=== PATIENT | male | born 1990 | race Caucasian/White ===

== ENCOUNTER 2020-07-13 10:44 | Inpatient (IN) | payer MEDICARE, OTHER ==
[~2020-07-13] VITALS: Ht 152.4 cm; Wt 104.5 kg
--- NOTE | 2020-07-13 21:00 | NUR ---
PT ARRIVED TO CCU ROOM 127 ADMITTED WITH CELLULITIS OF THE LLE, LEFT FOOT IS REDDENED/BLANCHEABLE, HOT TO THE TOUCH, AREA MARKED WITH MARKER. PT IS DEVELOPMENTALLY DELAYED/DOWN SYNDROM. MOTHER IS WITH PT AND WILL BE SPENDING THE NIGHT, STATES PTS NORMAL BASELINE MENTATION IS AT F[age] YEAR OLD LEVEL.PT VERY RESISTANT TO MOST CARE ACTIVITIES. WAS VERY RESISTANT TO MOVING FROM STETCHER TO BED, YELLING AND HITTING AT STAFF WITH ATTEMPTS TO MOVE HIM. AFTER MOVED HE WAS IMMEDIATLEY CALM HOWEVER. PLAN OF CARE DISCUSSED WITH MOTHER, QUESTIONS ANSWERED.
--- NOTE | 2020-07-13 21:33 | EKG ---
[facility] [address] [facility] [place] [address] Signed Sinus tachycardia Rightward axis Incomplete right bundle branch block Cannot rule out Inferior infarct , age undetermined Abnormal ECG No previous ECGs available Confirmed by KIRAN ZENG MD ([id number]) on 07/13/2020 9:32:57 PM Electronically Signed By: KIRAN ZENG MD 07/13/202132 PATIENT NAME: PARI BIANCHI Electrocardiogram DATE OF : [birth year] PHYSICIAN: KIRAN ZENG MD REPORT #: [id number] REPORT IS CONFIDENTIAL AND NOT TO BE RELEASED WITHOUT AUTHORIZATION
--- NOTE | 2020-07-14 01:29 | NUR ---
PT CONT SITTING UP IN BED WATCHING TV AND PLAYING ON HIS IPAD.
--- NOTE | 2020-07-14 02:00 | NUR ---
SPO2 DROPPED DOWN TO 83%, PT WAS SLEEPING BUT AWAKE WHEN STAFF CAME IN ROOM. BLOWBY O2 PLACED AND SPO2 UP TO 93%. WILL CON TO MONITOR.
--- NOTE | 2020-07-14 02:30 | NUR ---
PT STILL HAD NOT VOIDED, MADE SEVERAL ATTEMPTS TO GET HIM UP TO VOID BUT HE WAS VERY RESISTANT, REFUSING TO MOVE OUT OF BED, YELLING. TRIED USING A URINAL IN BED BUT HE WOULD NOT GO AND KEPT REPEATING "NO PEE, HOLD IT". BLADDER SCAN SHOWED 1200ML, CATHETER PLACED WITH IMMEDIATE RETURN OF 1500ML ODIN URINE. PT CALMER AFTER AND LYING BACK AFTER REPOSITIONING TO TRY TO REST.
--- NOTE | 2020-07-14 03:10 | NUR ---
PT APPEARS TO BE SLEEPING, SPO2 93% BLOW BY O2 IN PLACE.
--- NOTE | 2020-07-14 05:35 | NUR ---
LAB IN TO DRAW, PT TOLERATED WELL WITH REASSURANCE. SPENDS ABOUT AN HOUR TOSSING AND TURNING AND THEN FINALLY GOES TO SLEEP.
--- NOTE | 2020-07-14 07:30 | NUR ---
PATIENT SLEEPING AT THSI TIME WITH HIS MOM AT THE BEDSIDE. WILL ALLOW PATIENT TO REST. NO OTHER NEEDS AT THIS TIME. BREAKFAST ORDERED.
--- NOTE | 2020-07-14 07:30 | NUR ---
PATIENT SHIFT REPORT RECIEVED FROM APPLICATION DEVELOPER MANAGER RN. PATIENT RESTING IN BED. PATIENT GETTING AN ECHO COMPLETED AT THIS TIME. WILL CONTINUE TO CLOSELY MONITOR.
--- NOTE | 2020-07-14 08:16 | NUR ---
PATIENT UP IN THE BED EATING BREAKFAST. PATIENT ASSESSMENT COMPELTED. PATIENT BOWEL TONES ACTIVE. PATIENT DENIES ABD PAIN. BREATH SOUNDS CLEAR. PATIENT ON RA WITH SPO2 96%. WILL CONTINUE TO CLOSELY MONITOR.
--- NOTE | 2020-07-14 08:22 | NUR ---
THIS RN IN TO SEE PATIENT. PATIENT RESTING AT THIS TIME. PER REPORT PATIENT DID NOT SLEEP MUCH LAST NIGHT. PATIENTS MOM REQUESTS STAFF TO ALLOW PATIENT TO SLEEP A LITTLE WHILE LONGER. VITALS STABLE. WILL CONTINUE TO CLOSELY MONITOR.
--- NOTE | 2020-07-14 10:00 | NUR ---
PATIENT ASSESSMENT COMPELTED. ALLOWED PATIENT TO SLEEP IN THIS AM D/T PATIENT NOT SLEEPING MUCH LAST NIGHT. MD ZENG IN TO SEE PATIENT. PATIENTS FOOT IS PINK. OUTLINED WITH MARKER. LEFT FOOT IS WARM TO THE TOUCH. PATIENTS BREATH SOUNDS CLEAR. BOWEL TONES ACTIVE. PATIENT DENIES WANTING TO EAT BREAKFAST. PATIENTS MOM AT THE BEDSIDE. ALL QUESTIONS ANSWERED. WILL CONTINUE TO CLOSELY MONITOR.
[2020-07-14] MEDS ORDERED: OLOPATADINE HC2.5 ML OU (10:45)
[2020-07-14] MEDS ORDERED: ERYTHROMYCIN1 GM OU (11:04)
[2020-07-14] MEDS ORDERED: ALLEGRA ALLERG180 MG PO (11:04)
--- NOTE | 2020-07-14 11:05 | NUR ---
MED REC COMPLETE
--- NOTE | 2020-07-14 12:00 | NUR ---
PATIENT RESTING IN BED. PATIENTS MOM LEFT FOR AWHILE AND NOW IS BACK AT THIS TIME. LUNCH ORDERED. VITALS DONE. PATIENTS ASSESSMENT COMPLETED AND REMAINS UNCHANGED FROM PRIOR ASSESSMENT. PATIENT FOLLOWING COMMANDS. PER PATIENTS MOM PATIENT HAS THE MENTATION OF A 3YEAR OLD. BED ALARM WAS ON WHILE PATIENTS MOM WAS GONE. WILL CONTINUE TO CLOSELY MONITOR.
--- NOTE | 2020-07-14 12:22 | NUR ---
PT'S MOTHER HAS STEPPED OUT OF THE RM. PT GETS EASILY AGGITATED AND REQUESTED I WAIT UNTIL PT'S MOTHER RETURNS. WILL FOLLOW NEEDED
--- NOTE | 2020-07-14 14:08 | NUR ---
Got pt. up into chair, gave bed bath cleaned pt. up. had bowel movement in bed. Bed linens changed, changed pt. clothes. no other needs at this time.
--- NOTE | 2020-07-14 14:15 | NUR ---
THIS RN AND CATHODE RAY TUBE ASSEMBLER ASSISTED PATIENT UP TO THE CHAIR TO CLEAN PATIENT UP AND CHANGE LINEN. PATIENT INITIALLY DID NOT WANT TO GET UP AND BECAME UPSET. STAFF WERE ABLE TO ASSIST PATIENT UP TO THE CHAIR WITH SOME ENCOURAGEMENT. PATIENT HAD AN INCONTINENT BM IN THE BED. ALL LINEN CHANGED. BED BATH COMPLETED. NEW SHIRT PROVIDED. CAZARES CATH CARE DONE. PATIENT TOLERATED WELL AND ASSISTED UP BACK TO BED. GAVE PATIENT STICKERS AND WARM BLANKETS. PATIENT DRANK 2 APPLE ENSURES FOR LUNCH. PATIENT REFUSED ALL OTHER FOOD. NO OTHER NEEDS AT THIS TIME. WILL CONTINUE TO CLOSELY MONITOR.
--- NOTE | 2020-07-14 15:45 | NUR ---
PATIENT ASLEEP IN BED AT THIS TIME. WILL ALLOW PATIENT TO REST. WILL CONTINUE TO CLOSELY MONITOR.
--- NOTE | 2020-07-14 16:34 | NUR ---
STAFF IN TO APPLY NYSTATIN POWDER. PATIENT HANDLED IT WELL. DINNER ORDERED. VITALS COMPLETED. UPDATED PATIENTS MOM AND PATIENT THAT WE MAY MOVE HIM TO THE MEDICAL UNIT THIS EVENING. ALL QUESTIONS ANSWERED. NO OTHER NEEDS AT THIS TIME. PATIENT IS PLAYING ON HIS ANTONIETA DEVICE. WILL CONTINUE TO CLOSELY MONITOR.
--- NOTE | 2020-07-14 16:38 | NUR ---
Spoke with kathy Daly. Plans on pt going home when cleared medically. She is concerned as there are 5 steps into the home. Pt will not put any weight on his foot. Asked her to discuss with Dr. Nance in the morning, updated nurses. Suggested if pt is discharge tomorrow, they call the van for transport and then call EMS for a nonemergent lift to get him in the house. Mom states pt has a cane, she denies need for a walker at this time.
--- NOTE | 2020-07-14 17:40 | NUR ---
Recieved report from Madison TROTTER. All questions answered. Anticipating pts arrival in bed within the next 15mins.
--- NOTE | 2020-07-14 17:45 | NUR ---
REPORT GIVEN TO MEGHAN TROTTER. PATIENT AND ALL BELONGINGS TRANSFERED TO ROOM 121. PATIENTS MOM AT THE BEDSIDE. PATIENT ORIENTED TO ROOM AND STAFF. SHOWED QUAN TROTTER PATIENTS FOOT AND ANSWERED ALL QUESTIONS. NO OTHER NEEDS AT THIS TIME.
--- NOTE | 2020-07-14 18:00 | NUR ---
Pt delivered to new room on [facility] by Madison TROTTER and MEE and Alejo TROTTER. Pt settled into new room. Pt was slightly tachypnic and slightly tachy upon the excitement of the arrival, then was calmer once the extra people left the room and he felt more settled. Pts assessment complete, VSS, pt oriented to self, mother, and somewhat to place. Pt hungry, pt having dinner in bed, able to feed himself with minimal help opening things. Pt has mentation of about 3 years old. Pt in bed, IV fluids started and hung as ordered by Dinorah TROTTER. Pt in bed, side rails up x4, table and call light within reach, mother at the bedside.
--- NOTE | 2020-07-14 19:00 | NUR ---
SHIFT REPORT RECEIVED FROM MEGHAN TROTTER AND YVONNE TROTTER. PT RESTING IN BED, WATCHING TV. IV FLUIDS INFUSING PER ORDER. NO NEEDS AT THIS TIME. MOM IN ROOM. CALL LIGHT IN REACH.
--- NOTE | 2020-07-14 19:58 | NUR ---
pts VS and I&Os complete. Nothing further needed at this time.
--- NOTE | 2020-07-14 21:53 | NUR ---
ASSESSMENT COMPLETED. SCHEDULED MEDS PROVIDED. PRN PAIN MED PROVIDED FOR 3/10 PAIN USING FACES. IV WNL, CDI, FLUSHED WELL. PT ORIENTED TO PERSON, MOTHER IN ROOM. LUNGS CLEAR, HEART TONES REGULAR. ABD SOFT AND NONTENDER, BOWEL TONES ACTIVE. REDNESS UNDER PANNUS AND GROIN, NYSTOP APPLIED. CAZARES WNL. 1+ EDEMA IN RIGHT FOOT, REDNESS, CMS INTACT. JUICE PROVIDED. NO OTHER NEEDS. CALL LIGHT IN REACH.
--- NOTE | 2020-07-14 23:41 | NUR ---
PT RESTING IN BED, EYES CLOSED. RR EVEN, UNLABORED. MOM IN ROOM. CALL LIGHT IN REACH.
--- NOTE | 2020-07-15 01:31 | NUR ---
PT RESTING IN BED, EYES CLOSED. RR EVEN, UNLABORED. IV FLUIDS INFUSING PER ORDER. MOM IN ROOM. CALL LIGHT IN REACH.
--- NOTE | 2020-07-15 03:35 | NUR ---
PT RESTING IN BED, EYES CLOSED. RR EVEN, UNLABORED. IV FLUIDS INFUSING PER ORDER. MOM IN ROOM. CALL LIGHT IN REACH.
--- NOTE | 2020-07-15 06:06 | NUR ---
IN TO GET VITALS, I&OS DONE, WHITEBOARD UPDATED, CHRISTEN RIVERAPED, RN NOW IN RM TO HANG IV MEDS, NO FURTHER NEEDS AT THIS TIME, LAB TO BE IN SHORTLY
--- NOTE | 2020-07-15 06:16 | NUR ---
ASSESSMENT, VS AND I&O COMPLETED. CAZARES CARE PROVIDED. SCHEDULED MED PROVIDED. 1+ EDEMA, REDNESS IN LEFT FOOT. CMS INTACT. LUNGS CLEAR, ABD SOFT, NONTENDER, BOWEL TONES ACTIVE. PT OFFERED USE OF BSC, PT AND MOM DECLINED AT THIS TIME. IV WNL, IV FLUIDS INFUSING PER ORDER, NEW BAG PROVIDED. ENSURE PROVIDED. NO OTHER NEEDS AT THIS TIME. CALL LIGHT IN REACH.
--- NOTE | 2020-07-15 07:10 | NUR ---
In room for shift report from Nita TROTTER. Pr report included: Pt was able to eat a lot of soft foods last night but is refusing anything more solid. Pt encouraged to have eggs this morning and was disinterested. Pt had an otherwise uneventful evening. VSS. Denies pain and nausea. RN anticipating pts DC today, pending physical therapy evals and ability to ambulate and get home safely. Pt in bed, smiling and waving and alert. Breathing even and unlabored. Pt in bed, table and call light within reach. Mother at bedside.
--- NOTE | 2020-07-15 07:35 | NUR ---
PATIENT SITTING UP IN BED. MOM IN ROOM. WHITE BOARD UPDATED. PATIENT'S MIA AND FACE WASHED. CALL LIGHT WITHIN REACH. NO OTHER NEEDS AT THIS TIME
--- NOTE | 2020-07-15 08:45 | NUR ---
In room for rounding and med pass. Pt working with physical therapy. Assisted pt with getting to therapy room, pt was anxious and reluctant to stand or move on his left foot at all. Pt taken to therapy with Gary, in chair and compliant.
--- NOTE | 2020-07-15 09:00 | NUR ---
PATIENT RESTING IN BED. MOM, RN AND PHYSICAL THERAPIST IN ROOM. PATIENT INCONTINENT OF STOOL. PERICARE PERFORMED. PATIENT ASSISTED TO TRANSFER TO CHAIR. PATIENT LOOKS AGITATED AND REFUSED TO WEAR PANTS AND WALK. LINENS CHANGED. CALL LIGHT WITHIN REACH. NO OTHER NEEDS AT THIS TIME
--- NOTE | 2020-07-15 09:38 | NUR ---
PATIENT SITTING UP IN CHAIR. MOM IN ROOM. VITAL SIGNS AND I&O DONE. CALL LIGHT WITHIN REACH. NO OTHER NEEDS AT THIS TIME
--- NOTE | 2020-07-15 10:30 | NUR ---
To room for rounding. Pt working with physical therapy.
--- NOTE | 2020-07-15 11:50 | NUR ---
In room for rounding. Pt monse chong in chair, playing on his tablet device. Pt denies pain and nausea at this time. Pt breathing even and unlabored. Pt in chair, table and call light within reach, mother at bedside, curtains and door open and visible from the nurses station.
--- NOTE | 2020-07-15 12:49 | NUR ---
PT SALINE LOCKED PER DR ORDER.
--- NOTE | 2020-07-15 13:02 | NUR ---
PATIENT SITTING UP IN CHAIR. MOM IN ROOM. VITAL SIGNS AND I&O DONE. CALL LIGHT WITHIN REACH. NO OTHER NEEDS AT THIS TIME
--- NOTE | 2020-07-15 13:13 | NUR ---
Called MD Nance to inform him of pts IV no longer being patent. Pt has already been moved to oral meds and IV fluids were DCd so decides that pt does not need a new IV started at this time.
--- NOTE | 2020-07-15 14:51 | NUR ---
In room for rounding. Pt in chair, reclined, watching tv. Pts mom made several requests for specifics of care since shes leaving tonight to get a good nights sleep and to attend yarsanism tomorrow. Pt seems aware that shes leaving and says thats "fine" and "okay, bye" to his mom. Pt in chair, table and call light within reach.
--- NOTE | 2020-07-15 15:05 | NUR ---
In room for med pass. Pt able to take cephalexin capsule opened into a bite of pudding without difficulty. Pt sitting up in chair, table and call light within reach, curtain and door open and pt visible from nurses station. Pts mother at chair side.
--- NOTE | 2020-07-15 15:30 | NUR ---
To room for rounding. Pt in chair, watching TV, denies pain and nausea at this time. Pt in chair, table and call light within reach. Mother at chair side.
--- NOTE | 2020-07-15 17:21 | NUR ---
PATIENT SITTING UP IN CHAIR. MOM IN ROOM. VITAL SIGNS AND I&O DONE. CALL LIGHT WITHIN REACH. NO OTHER NEEDS AT THIS TIME
--- NOTE | 2020-07-15 19:10 | NUR ---
SHIFT REPORT RECEIVED FROM DAYSNDFT SERGO PALMA AT BEDSIDE. PT AWAKE AND RESTING IN BED. CAZARES IN PLACE AND PATENT. PT APPEARS COMFORTABLE, CALL LIGHT IN REACH AND BED ALARM ON FOR SAFETY.
--- NOTE | 2020-07-15 21:19 | NUR ---
PATIENT IS RESTING IN BED. I&O AND VITALS DONE. FRESH WATER GIVEN. CALL LIGHT IN REACH NO OTHER NEEDS AT THIS TIME.
--- NOTE | 2020-07-15 21:30 | NUR ---
ASSESSMENT COMPLETE, SCHEDULED MEDS GIVEN WITH APPLESAUCE. PT AWAKE AND APPEARS COMFORTABLE. NO PAIN NOTED, NYSTATIN APPLIED TO GROIN AREA D/T REDDNESS AND MOIST APPEARANCE. CAZARES PATENT AND DRAINING WELL. VSS, PT INTERACTIVE WITH STAFF. LUNG SOUNDS CLEAR. CALL LIGHT IN REACH AND BED ALARM ON.
--- NOTE | 2020-07-15 21:53 | NUR ---
ASSESSED PT'S SKIN WITH PRIMARY RN LUIS E, PT HAS VARIOUS SCABS/OLD SCARS, LEFT FOOT IS RED AND RECEEDING IN THE OUTLINED AREA, AND GROIN AREA/SCROTUM IS RED WITH NYSTOP POWDER IN PLACE.
--- NOTE | 2020-07-16 01:32 | NUR ---
PT RESTING QUIETLY IN BED, RR 20. NO DISTRESS NOTED, PT APPEARS COMFORTABLE AND RELAXED. HOB ELEVATED. CAZARES PATENT AND DRAINING WELL. CALL LIGHT IN REACH.
--- NOTE | 2020-07-16 04:29 | NUR ---
PT RESTING IN BED, AWAKE AND WATCHING TV. O2 SAT 98% ON RA. HR 90'S, NO DISTRESS NOTED. PT APPEARS RELAXED AND COMFORTABLE. CALL LIGHT IN REACH AND BED ALARM ON.
--- NOTE | 2020-07-16 05:36 | NUR ---
PATIENT WAS ASLEEP WHEN I ENTERED THE ROOM. FRESH WATER GIVEN. I&O AND VITALS DONE. CALL LIGHT IN REACH. NO OTHER NEEDS AT THIS TIME.
--- NOTE | 2020-07-16 06:16 | NUR ---
PT INCONTINENT OF STOOL, WITH HELP FROM RN MANAGERSERGO MESA. BISI CARE COMPLETE. PT REPOSITIONED IN BED AND BOOSTED. RR 24, NO DISTRESS NOTED. LUNG SOUNDS CLEAR. HOB ELEVATED. CALL LIGHT IN REACH AND BED ALARM ON.
--- NOTE | 2020-07-16 07:33 | NUR ---
Patient resting in bed, respiration even and non labored. Patient close to RN station. Personal supplies and call light within reach.
--- NOTE | 2020-07-16 09:02 | NUR ---
WOKE PATIENT UP FOR BREAKFAST. FACE AND HANDS WASHED, ASSISTED WITH STRAW AND CUT UP PANCAKE. CALL LIGHT IN REACH.
--- NOTE | 2020-07-16 10:40 | NUR ---
VITALS AND I&OS CHARTED, MOTHER IN ROOM NOW, CALL LIGHT IN REACH, NO OTHER NEEDS AT THIS TIME
[2020-07-16] MEDS ORDERED: CEPHALEXIN500 MG PO (11:13)
--- NOTE | 2020-07-17 07:30 | NUR ---
Pt. discharged to the home over the weekend. Received call from Kimi TROTTER. Requested they send by van and call EMS to help them get him into the home. Pt is refusing to put any weight on his foot. Chart faxed to [facility] this am. H&P, DC summary with f2f, covid test, face sheet. Referral signed, and medication list.
--- NOTE | 2020-07-17 09:57 | NUR ---
SCHEDULED A FOLLOW UP WITH THE UROLOGY NURSE FOR URINARY RETENTION, APPT. WILL BE 07/26 AT 1:30. [facility] REQUESTED PATIENT TO BE ON FLOWMAX, DR VÁSQUEZ FILLED OUT A RX AND I FAXED IT TO [facility] PER MOTHERS REQUEST.
--- NOTE | 2020-07-17 10:00 | NUR ---
Call from [facility], order for catheter was for catheter care. This is not a skilled need. Pt was declined. Spoke iwth Dr. Nance and pt will see Dr. Robert in 1 week for cath removal. Called pt's mom and discussed reverse transfer of going home. Encouraged to go to [place] and get a transport w[facility], call [facility] and schedule ride to office, the day of appt. call [facility] for a courtesy list to get pt into the [facility] van. I also provided education on cleaning pts catheter 2 x per day with a warm wash cloth. Clean penis and head where catheter is inserted and wipe down the catheter away from the penis. Understanding stated.
== END 2020-07-16 13:12 | disposition home health service (06) | DRG 872 ==
LOC: ED 10:44 → EDBD 20:24 → MS 20:24 → CCU 20:24 → MS 07-14 17:50
PROVIDERS: ADMIT Internal Medicine; ATTEND Internal Medicine
DX: A41.9 Sepsis, unspecified organism (principal); L03.116 Cellulitis of left lower limb; N17.9 Acute kidney failure, unspecified; Z20.828 Contact with and (suspected) exposure to other viral communicable diseases; R65.20 Severe sepsis without septic shock; Q90.9 Down syndrome, unspecified; R33.9 Retention of urine, unspecified; Z88.2 Allergy status to sulfonamides
CPT/HCPCS: 36415; 51701; 71045; 71046; 73610; 73630; 74018; 80048; 80053; 81001; 83605; 83880; 84484; 85025; 85379; 93005; 93010; 93971; 97162; 97530; 99285-25; C9803; J0690; J1650; J7030; J7121; U0003